=== PATIENT | female | born 1945 | race Caucasian/White ===

== ENCOUNTER 2021-04-10 13:54 | Emergency (ER) | payer OTHER, BC ==
[2021-04-10] MEDS ORDERED: METOPROLOL TARTRATE 5 MG/5 ML VIAL IVPUSH ONE ×3 (14:02→14:38)
[2021-04-10] MEDS ORDERED: METOPROLOL TARTRATE 5 MG/5 ML VIAL ONE (14:08)
[2021-04-10 14:31] VITALS: TEMP 98; BMI 21.7
[2021-04-10 14:42] LABS: ALBUMIN 4.7 g/dl (3.4-5.0); ALK PHOS 75 U/L (45-117); CREATININE 0.8 mg/dl (0.55-1.3); GLUCOSE,RANDOM 140 mg/dl (74-106); INR 0.99 (0.82-1.09); SGOT/AST 33 U/L (15-37); SGPT/ALT 21 U/L (13-61); TOT PROT 7.9 g/dl (6.4-8.2)
[2021-04-10 14:48] LABS: ANION GAP 10 MMOL/L (8-16); CALCIUM 10.8 mg/dl (8.5-10); CHLORIDE 105 mmol/L (98-107); CO2 26 mmol/L (21-32); SODIUM 141 mmol/L (136-145)
[2021-04-10 14:59] LABS: HEMATOCRIT 44.5 % (32.4-45.2); HEMOGLOBIN 15.3 GM/dl (10.7-15.3); MCHC 34.4 g/dl (32.0-36.0); MEAN PLT VOLUME 8.9 fl (7.5-11.1); PLATELET COUNT 240 10^3/uL (134-434); RBC 4.78 M/mm3 (3.60-5.2); RDW 11.7 % (11.6-15.6)
[2021-04-10 15:59] VITALS: BP 127/73; PULSE 76
[2021-04-10 16:04] LABS: PLATELET ESTIMATE ADEQUATE
== END 2021-04-10 16:25 | disposition home or self-care (01) ==
LOC: FER 13:54
PROC: 3E033NZ Introduction of Analgesics, Hypnotics, Sedatives into Peripheral Vein, Percutaneous Approach (ICD-10-PCS; principal; 2021-04-10)
PROC: 3E033GC Introduction of Other Therapeutic Substance into Peripheral Vein, Percutaneous Approach (ICD-10-PCS; 2021-04-10)
PROC: 3E033GC Introduction of Other Therapeutic Substance into Peripheral Vein, Percutaneous Approach (ICD-10-PCS; 2021-04-10)
DX: I48.91 Unspecified atrial fibrillation (principal)
CPT/HCPCS: 36415; 71045-TC-FY; 80053; 84443; 84484; 85025; 85610; 93005; 99284-25; C9803; U0003; U0005

== ENCOUNTER 2021-09-22 08:20 | Emergency (ER) | payer OTHER, BC ==
[2021-09-22 08:30] VITALS: BP 145/78; PULSE 73; TEMP 97.7; BMI 21.7
[2021-09-22] MEDS ORDERED: ACETAMINOPHEN 325 MG TABLET (FP) PO ONE (08:30)
[2021-09-22] MEDS ORDERED: ACETAMINOPHEN 325 MG TABLET (FP) ONE (08:46)
[2021-09-22 10:55] LABS: HEMATOCRIT 41.9 % (32.4-45.2); HEMOGLOBIN 14.8 G/dL (10.7-15.3); MCH 31.5 pg (25.7-33.7); MCHC 35.2 g/dl (32.0-36.0); MEAN CELL VOLUME 89.5 fl (80-96); MEAN PLT VOLUME 8.5 fl (7.5-11.1); RBC 4.68 10^6/uL (3.60-5.2); RDW 14.1 % (11.6-15.6); WHITE BLOOD COUNT 9.1 10^3/uL (4.0-10.8)
[2021-09-22 10:56] LABS: INR 1.33 (0.83-1.09); PROTHROMBIN TIME (PATIENT) 15.3 SEC (9.7-13.0)
[2021-09-22 11:07] LABS: ALBUMIN 4.4 g/dl (3.4-5.0); BILIRUBIN,TOTAL 0.9 mg/dl (0.2-1); CREATININE 0.7 mg/dl (0.55-1.3); TOT PROT 7.6 g/dl (6.4-8.2)
[2021-09-22] MEDS ORDERED: LIDOCAINE HCL 2% (20ML MULTI-DOSE VIAL) ONE ×2 (11:44→11:53)
[2021-09-22 12:30] LABS: PLATELET ESTIMATE ADEQUATE
== END 2021-09-22 13:04 | disposition home or self-care (01) ==
LOC: FER 08:20
DX: S52.532A Colles' fracture of left radius, initial encounter for closed fracture (principal); W19.XXXA Unspecified fall, initial encounter
CPT/HCPCS: 36415; 73110-TC-LT-FY; 80053; 85025; 85610; 86850; 86900; 86901; 93005; 99284-25

== ENCOUNTER 2021-09-26 04:05 | Day surgery (SDC) | payer OTHER, BC ==
[2021-09-23 11:16] VITALS: BMI 21.7
[2021-09-26] MEDS ORDERED: ROPIVACAINE HCL 0.5% 30ML VIAL ONE (09:36)
[2021-09-26] MEDS ORDERED: DEXMEDETOMIDINE HCL 200 MCG/2 ML IVPB ONE (09:36)
[2021-09-26] MEDS ORDERED: MIDAZOLAM HCL 2 MG/2 ML SINGLE DOSE VIAL ONE ×2 (09:41→10:13)
[2021-09-26] MEDS ORDERED: SUCCINYLCHOLINE CHLORIDE 200 MG/10 ML SYRINGE ONE (10:04)
[2021-09-26] MEDS ORDERED: ceFAZolin SODIUM 1 GM VIAL IVPB ONE (10:15)
[2021-09-26] MEDS ORDERED: DEXAMETHASONE SOD PHOSPHATE 4 MG/1 ML VIAL ONE (10:16)
[2021-09-26] MEDS ORDERED: ONDANSETRON 4 MG/2 ML VIAL ONE (10:16)
[2021-09-26] MEDS ORDERED: ceFAZolin SODIUM 1 GM VIAL ONE (10:16)
[2021-09-26] MEDS ORDERED: LACTATED RINGERS SOLUTION 1,000 ML IV SCH (11:30)
[2021-09-26] MEDS ORDERED: ONDANSETRON 4 MG/2 ML VIAL IVPUSH PRN (11:30)
[2021-09-26 13:48] VITALS: BP 107/54; PULSE 79; TEMP 97.4
== END 2021-09-26 13:49 | disposition home or self-care (01) ==
LOC: JASU-SURG 04:05
PROVIDERS: ATTEND Orthopaedic Surgery
PROC: 0PSJ04Z Reposition Left Radius with Internal Fixation Device, Open Approach (ICD-10-PCS; principal; 2021-09-26 10:00)
DX: S52.572A Other intraarticular fracture of lower end of left radius, initial encounter for closed fracture (principal); X58.XXXA Exposure to other specified factors, initial encounter; Y93.9 Activity, unspecified; Y92.9 Unspecified place or not applicable; Y99.9 Unspecified external cause status
CPT/HCPCS: 25608; C1713; 76000-TC-FY; 94760